=== PATIENT | male | born 1970 | race Two or more races ===

== ENCOUNTER 2019-09-01 13:17 | Emergency (ER) | payer MEDICAID ==
[~2019-09-01] VITALS: Ht 188 cm; Wt 117.5 kg
[~2019-09-01 13:17] MED LIST: HYDR-4833 PO
[2019-09-01] MEDS ORDERED: HYDROcodone-ACET 7.5/325MG TAB PO ONE (16:45)
[2019-09-01] MEDS ORDERED: cefTRIAXone SOD 1,000 MG VL IM ONE (16:45)
[2019-09-01 16:50] VITALS: BP 128/92
== END 2019-09-01 17:00 | disposition home or self-care (01) ==
LOC: ER 13:17
DX: N45.1 Epididymitis (principal)
CPT/HCPCS: 96372; 99283; J0696

== ENCOUNTER 2023-12-09 12:03 | Emergency (ER) | payer SELFPAY ==
[~2023-12-09] VITALS: Ht 180.3 cm; Wt 107.0 kg
[2023-12-09] MEDS ORDERED: HYDROcodone-ACET 10/325MG TAB PO ONE (13:00)
[2023-12-09] MEDS: methylPREDNISolone SOD SUCC 125 MG/2 ML VL IM ONE (14:18)
[2023-12-09] MEDS: HYDROmorphone HCL 2 MG/ML VL/or syr IM ONE (14:22)
[2023-12-09] MEDS ORDERED: HYDR-4902 PO (14:34)
[2023-12-09] MEDS ORDERED: IBUP-1456 PO (14:34)
[2023-12-09 14:58] VITALS: BP 139/93; PULSE 108; RESP 20; TEMP 98.3; O2SAT 99
== END 2023-12-09 14:59 | disposition home or self-care (01) ==
LOC: ER 12:03
DX: M16.11 Unilateral primary osteoarthritis, right hip (principal); Z79.899 Other long term (current) drug therapy
CPT/HCPCS: 72170; 96372; 99285; J1170; J2930

== ENCOUNTER 2024-04-05 07:39 | Emergency (ER) | payer MEDICAID ==
[~2024-04-05] VITALS: Ht 182.9 cm; Wt 111.9 kg
[~2024-04-05 07:39] MED LIST changes: +HYDR-4902 PO; +IBUP-1456 PO
[2024-04-05 09:20] LABS: Basophils # (auto) 0.1 10 ^3/uL (0-0.2); Basophils % (auto) 1.3 % (0.0-2.0); Eosinophils # (auto) 0.2 10 ^3/uL (0-0.8); Eosinophils % (auto) 4.2 % (0.0-7.0); Hematocrit 46.3 % (41.0-53.0); Hemoglobin 15.9 g/dL (13.5-17.5); Lymphocytes # (auto) 1.1 10 ^3/uL (0.4-5.4); Lymphocytes % (auto) 22.1 % (10.0-50.0); Mean Corpuscular Hemoglobin 31.1 pg (28.0-32.0); Mean Corpuscular Hgb Conc. 34.4 g/dL (32.0-36.0); Mean Corpuscular Volume 90.3 fL (80.0-100.0); Monocytes # (auto) 0.5 10 ^3/uL (0-1.3); Monocytes % (auto) 9.4 % (0.0-12.0); Neutrophils # (auto) 3.1 10 ^3/uL (1.6-8.6); Red Blood Cells 5.13 10^6/uL (4.5-5.90); Red Cell Distribution Width 13.5 % (11.8-14.3); White Blood Cell 4.9 10^3/uL (4.4-10.8)
[2024-04-05 09:36] LABS: Alanine Aminotransferase 24 U/L (7-40); Albumin 4.4 g/dL (3.2-4.8); Alkaline Phosphatase 107 U/L (46-116); Anion Gap 2 (5-15); Aspartate Aminotransferase 11 U/L (13-40); BUN/Creatinine Ratio 20.3 (10.0-20.0); Blood Urea Nitrogen 15 mg/dL (9-23); Calcium 9.7 mg/dL (8.5-10.1); Carbon Dioxide 28 mmol/L (20-30); Chloride 109 mmol/L (98-107); Cholesterol 208 mg/dL (< 200); Creatine Kinase IFCC 84 U/L (46-171); Glucose 97 mg/dL (74-106); HDL Cholesterol 51 mg/dL (40-59); LDL Cholesterol 150 mg/dL (< 100); Potassium 4.4 mmol/L (3.5-5.1); Sodium 139 mmol/L (136-145); Triglycerides 57 mg/dL (< 150)
[2024-04-05 09:37] LABS: Bilirubin, Total 0.8 mg/dL (0.2-1.0)
[2024-04-05 09:47] LABS: INR 0.99 (0.9-1.15); Partial Thromboplastin Time 26.5 SEC (24.5-34.5); Prothrombin Time 10.5 sec (9.3-11.8)
[2024-04-05 09:55] LABS: Urine Bacteria None Seen /hpf (None Seen)
[2024-04-05 10:05] LABS: Urine Blood Negative /uL (Negative); Urine Clarity Clear (Clear); Urine Color Yellow (Yellow); Urine Mucus FEW (None Seen); Urine Protein, UAD Negative (Negative); Urine Specific Gravity 1.026 (1.001-1.035); Urine Urobilinogen Normal (Negative); Urine WBC 7 /hpf (0 - 3)
[2024-04-05 11:20] LABS: Free T3 3.69 pg/mL (2.3-4.2); Free T4 (Free Thyroxine) 1.19 ng/dL (0.89-1.76)
[2024-04-05] MEDS: SODIUM CHLORIDE 0.9% 1,000 ML IV ONE (11:49)
[2024-04-05] MEDS: MULTIPLE VITAMIN TAB PO ONE (11:55)
[2024-04-05 15:33] VITALS: BP 149/96; PULSE 82; RESP 19; TEMP 98.2; O2SAT 97
== END 2024-04-05 15:34 | disposition home or self-care (01) ==
LOC: ER 07:39
DX: E86.0 Dehydration (principal); R41.0 Disorientation, unspecified; Z86.2 Personal history of diseases of the blood and blood-forming organs and certain disorders involving the immune mechanism; Z79.899 Other long term (current) drug therapy
CPT/HCPCS: 36415; 70450; 71045; 80053; 80061; 81001; 82550; 82962; 83036; 84439; 84443; 84481; 84484; 85025; 85610; 85730; 93005; 96360; 99285; J7030

== ENCOUNTER 2025-01-05 07:32 | Emergency (ER) | payer MEDICAID, OTHER ==
[~2025-01-05] VITALS: Ht 182.9 cm; Wt 129.7 kg
[2025-01-05 08:04] VITALS: TEMP 97.8; O2SAT 97
--- NOTE | 2025-01-05 08:21 | ED.PDOC ---
Musculoskeletal HPI Comments A 54 YEAR OLD MALE PRESENTS TO THE ED WITH CHIEF COMPLAINT OF KNEE AND SHOULDER PAIN. PATIENT REPORTS THAT HE HAS BEEN EXPERIENCING CHRONIC LEFT SHOULDER AND RIGHT KNEE PAIN SINCE JUNE 2024 DUE TO ARTHRITIS AND WEAR/TEAR. PATIENT RELAYS THAT HE HAS VISITED HIS PCP REGARDING THIS PROBLEM AND HAS A CURRENT WORKER'S COMP CASE FOR UNRELATED RIGHT HIP REPLACEMENT THAT WAS DONE ON 11/22/24. PATIENT NOTES HE CURRENTLY TAKES PERCOCET FOR PAIN RELIEF AT HOME, BUT THERE HAS BEEN MINIMAL RELIEF. PATIENT DENIES ANY RECENT FALL, INJURY, NUMBNESS, OR WEAKNESS. PT REQUESTS PAIN INJECTION AT THIS TIME. PT IS ALERT, ORIENTATION X4 WITH NORMAL GAIT. NO OTHER SYMPTOMS REPORTED AT THIS TIME OF CARE. Chief Complaint: Body Pain Time Seen by MD: 08:16 Primary Care Provider: DONALD Vázquez Notes: Nurses Notes, Medications, Allergies Allergies: Coded Allergies: NO KNOWN ALLERGIES (Unverified , 06/30/10) Home Meds Active Scripts Hydrocodone-Acetaminophen (Hydrocodone Bitartrate/AC 5-325 mg) 1 Tab Tab, 1 TAB PO TID PRN, #20 TAB Prov:ELOISA PABON 12/09/23 Ibuprofen (Ibuprofen) 800 Mg Tab, 1 TAB PO TID, #90 TAB 1 Refill Prov:ELOISA PABON 12/09/23 Reported Medications Hydrocodone-Acetaminophen ([place] 5/325MG) 1 Tab Tb, 1 TAB PO TID, #90 TAB 01/12/15 Information Source: Patient Mode of Arrival: Ambulatory Location: Left, Right Extremity Location: Knee, Shoulder Timing: Months Prehospital treatment: None Severity: Moderate Able to Move Extremity: Yes Bear Weight: Fully Pain: Moderate Mechanism: Spontaneous Circumstances: Arthritis Onset of Symptoms: Spontaneous Symptoms: Pain DVT Risk Factors: NONE Last Tetanus: UTD History of: Hip Operation Associated signs and symptoms: Shoulder pain, Knee pain Past Medical History PAST MEDICAL HISTORY: Denies Surgical History (Other): RT HIP REPLACEMENT Family History Family History: Unknown Social History Smoker: Non-Smoker Alcohol: Denies ETOH Use Drugs: Denies Drug Use Lives In: Home Constitutional: denies: chills, diaphoresis, fatigue, fever, malaise, sweats, weakness, others EENTM: denies: blurred vision, double vision, ear bleeding, ear discharge, ear drainage, ear pain, ear ringing, eye pain, eye redness, hearing loss, mouth pain, mouth swelling, nasal discharge, nose bleeding, nose congestion, nose pain, photophobia, tearing, throat pain, throat swelling, voice changes, others Respiratory: denies: cough, hemoptysis, orthopnea, SOB at rest, shortness of breath, SOB with excertion, stridor, wheezing, others Cardiovascular: denies: chest pain, dizzy spells, diaphoresis, Dyspnea on exertion, edema, irregular heart beat, left arm pain, lightheadedness, palpitations, PND, syncope, others Gastrointestinal: denies: abdomen distended, abdominal pain, blood streaked bowels, constipated, diarrhea, dysphagia, difficulty swallowing, hematemesis, melena, nausea, poor appetite, poor fluid intake, rectal bleeding, rectal pain, vomiting, others Genitourinary: denies: burning, dysuria, flank pain, frequency, hematuria, incontinence, penile discharge, penile sore, pain, testicle pain, testicle swelling, urgency, others Neurological: denies: dizziness, fainting, headache, left sided numbness, left sided weakness, numbness, paresthesia, pre-existing deficit, right sided numbness, right sided weakness, seizure, speech problems, tingling, tremors, weakness, others Musculoskeletal: reports: joint pain, muscle pain, others (LEFT SHOULDER PAIN, RIGHT KNEE PAIN); denies: back pain, gout, joint swelling, muscle stiffness, neck pain Integumetry: denies: bruises, change in color, change in hair/nails, dryness, laceration, lesions, lumps, rash, wounds, others Allergic/Immunocompromised: denies: Difficulty Healing, Frequent Infections, Hives, Itching, others Hematologic/Lymphatic: denies: anemia, blood clots, easy bleeding, easy bruising, swollen glands, others Endocrine: denies: excessive hunger, excessive sweating, excessive thirst, excessive urination, flushing, intolerance to cold, intolerance to heat, unexplained weight gain, unexplained weight loss, others Psychiatric: denies: anxiety, bipolar disorder, depression, hopeless, panic disorder, schizophrenia, sleepless, suicidal, others All Other Systems: Reviewed and Negative Physical Exam General Appearance: No Apparent Distress, Obese HEENT: Normal ENT Inspection, PERRL/EOMI, Pharynx Normal Neck: Full Range of Motion, Non-Tender, Normal, Normal Inspection Respiratory: Chest Non-Tender, Lungs Clear, No Accessory Muscle Use, No Respiratory Distress, Normal Breath Sounds Cardiovascular: No Edema, No JVD, No Murmur, No Gallop, Normal Peripheral Pulses, Regular Rate/Rhythm Breast Exam: Deferred Gastrointestinal: No Organomegaly, Non Tender, No Pulsatile Mass, Normal Bowel Sounds, Soft Genitalia: Deferred Pelvic: Deferred Rectal: Deferred Extremities: Decreased range of motion (SLIGHTLY. ), No calf tenderness, Normal capillary refill, Normal inspection, No pedal edema, Tender (LEFT SHOULDER AND RIGHT KNEE, NO BONY TENDERNESS, SWELLING AND DEFORMITY. ) Musculoskeletal : Apperance: Normal Neurologic: Alert, histotechnologist supervisor II-XII nml as Tested, No Motor Deficits, Normal Affect, Normal Mood, No Sensory Deficits Cerebellar Function: Normal Reflexes: Normal Skin: Dry, Normal Color, Warm Peripheral Pulses: 2+ carotid (R), 2+ carotid (L), 2+ dorsalis pedis (R), 2+ dorsalis pedis (L), 2+ Radial (R), 2+ Radial (L), 2+ Brachial (R), 2+ Brachial (L) Lymphatic: No Adenopathy Was a procedure done? Was a procedure done?: No Differential Diagnosis EXT Differential Diagnosis: Sprain, DJD, Strain, Arthritis, Bursitis X-Ray, Labs, Meds, VS Vital Signs Date Time Temp Pulse Resp B/P (MAP) Pulse Ox O2 Delivery O2 Flow Rate FiO2 01/05/25 08:27 87 17 147/101 01/05/25 08:04 97.8 87 17 149/101 (117) 98 97.8 01/05/25 08:04 78 18 97 Room Air 01/05/25 07:44 97.1 84 18 153/97 (115) 97 97.1 Current Medications Medications (Trade) Dose Ordered Sig/Negin Route Start Time Stop Time Status Last Admin Meperidine HCl (Demerol Injection) 50 mg ONCE ONCE IM 01/05/25 08:30 01/05/25 08:31 DC 01/05/25 08:27 Ondansetron HCl (Zofran Po) 4 mg ONCE ONCE PO 01/05/25 08:30 01/05/25 08:31 DC 01/05/25 08:27 X-Ray, Labs, Meds, VS Comment EXTERNAL MEDICAL RECORDS REVIEWED: [NONE] INDEPENDENT HISTORIANS: [NONE] SOCIAL DETERMINANTS OF HEALTH: [NONE] LABS ORDERED: NONE REVIEWED AND INTERPRETED RESULTS: RT KNEE AND LEFT SHOULDER XR IMAGING ORDERED: RT KNEE AND LT SHOULDER XR: NO FX AND DISLOCATION, OLD FX OF LEFT CLAVICLE, READ BY ME, PENDING RADIOLOGIST READING. TREATMENTS ORDERED: MEPERIDINE 50MG IM, ZOFRAN 4MG SL PROCEDURES PERFORMED: NONE CRITICAL CARE TIME: NONE I HAVE DISCUSSED THE PATIENT WITH THE ATTENDING PHYSICIAN DR. HUNTER AND HE AGREES WITH THE PATIENT'S PLAN OF CARE AND DISPOSITION. BASED ON HISTORY OF PRESENT ILLNESS, AND PHYSICAL EXAM, PATIENT WILL BE DISCHARGED HOME. DISCUSSED PLAN FOR DISCHARGE HOME WITH RX: ROBAXIN 750MG. MEDICATION WARNINGS GIVEN. SHARED DECISION MAKING: DISCUSSED WITH PATIENT THAT THEIR WORKUP WAS NORMAL. PATIENT INSTRUCTED TO FOLLOW UP WITH PRIMARY CARE PROVIDER IN 1-2 DAYS FOR RE- EVALUATION OF SYMPTOMS. PATIENT VERBALIZES UNDERSTANDING TO RETURN TO ED FOR NEW OR WORSENING SYMPTOMS OR IF FOLLOW UP WITH PCP CANNOT BE OBTAINED. PATIENT FEELS COMFORTABLE GOING HOME AT THIS TIME. ALL QUESTIONS ADDRESSED AT TIME OF DISCHARGE. Time of 1ST Reevaluation: 09:00 Reevaluation 1ST: Improved Patient Education/Counseling: Diagnosis, Treatment, Need For Follow Up Family Education/Counseling: Diagnosis, Treatment, Need For Follow Up Medical Screening: No EMC Exist At This Time Departure 1 Departure Time of Disposition: 09:00 Impression: Primary Impression: Internal derangement of right knee Additional Impression: Internal derangement of left shoulder Disposition: 01 HOME / SELF CARE / HOMELESS Condition: Stable Additional Instructions: FOLLOW-UP WITH PCP IN 1 TO 2 DAYS. TAKE MEDICATIONS PRESCRIBED. RETURN TO ED FOR ANY NEW OR WORSENING SYMPTOMS. e-Prescriptions Methocarbamol (Methocarbamol) 750 Mg Tab 750 MG PO BID, #30 TAB Prov: SCOOBY HERNANDEZ 01/05/25 Discharged With: Self, Spouse Critical Care Note Critical Care Time?: No Stability Stability form required: No Heart Score Heart Score: Heart Score Response (Comments) Value History N/A 0 EKG N/A 0 Age N/A 0 Risk Factors N/A 0 Troponin N/A 0 Total 0 I personally scribed for SCOOBY HERNANDEZ ([email or web address]) on 01/05/25 at 08:21. Electronically submitted by Nikita Her ([email or web address]). SCOOBY HERNANDEZ Jan 05, 2025 08:21
[2025-01-05] MEDS: ONDANSETRON ODT 4 MG TAB PO ONE (08:27)
[2025-01-05] MEDS: MEPERIDINE HCL (50 MG/ML) 1 ML VIAL IM ONE (08:27)
[2025-01-05 08:53] VITALS: BP 147/92; PULSE 79; RESP 19
[2025-01-05] MEDS ORDERED: METH-1182 PO (08:54)
--- NOTE | 2025-01-05 09:28 | DVH ---
CLINICAL INDICATION: PAIN, NO INJURY TECHNIQUE: 3 radiographic views of the right knee were obtained. Comparison: None FINDINGS/IMPRESSION: There is no evidence of acute fracture or dislocation. The visualized joint space is well maintained. Trace right knee joint effusion. The alignment is anatomical. There is no radiopaque foreign body.
--- NOTE | 2025-01-05 09:31 | DVH ---
CLINICAL INDICATION: PAIN, NO INJURY TECHNIQUE: 3 radiographic views of the left shoulder were obtained. Comparison: None FINDINGS/IMPRESSION: Healing mid left clavicular fracture.
== END 2025-01-05 09:09 | disposition home or self-care (01) ==
LOC: ER 07:44
DX: M23.91 Unspecified internal derangement of right knee (principal); M24.9 Joint derangement, unspecified; Z79.1 Long term (current) use of non-steroidal anti-inflammatories (NSAID); Z96.641 Presence of right artificial hip joint
CPT/HCPCS: 73030; 73562; 96372; 99284; J2175; Q0162